=== PATIENT | female | born 1930 | race Caucasian/White ===

== ENCOUNTER 2016-06-30 20:37 | Emergency (ER) | payer MEDICARE, BC ==
--- NOTE | 2016-06-30 20:54 | ED Physician Documentation ---
General Adult - HISTORIAN Historian: patient - HPI Stated Complaint: hypertension Chief Complaint: General Adult Onset: hours Timing: still present Severity: moderate Further Comments: yes (Pt is an 86 yo female with HTN. Pt takes her BP regularly and found high readings at home with SBP>200. Pt has hx HTN and intermittent afib and has had afib with rvr in the past. Pt takes sotolol and lisinopril for HR and HTN.) - ROS CONST: no problems EYES/ENT: none CVS/RESP: none GI/: none MS/SKIN/LYMPH: none - PAST HX Past History: other (intermittent afib, hx afib w rvr, HTN, parathyroid dz, HLD , GERD.) Allergies/Adverse Reactions: Allergies Allergy/AdvReac Type Severity Reaction Status Date / Time sulfamethoxazole Allergy Intermediate rash Unverified 06/02/16 10:20 [From Bactrim] trimethoprim [From Bactrim] Allergy Intermediate rash Unverified 06/02/16 10:20 No Known Drug Allergies Allergy Unverified 06/02/16 09:47 Home Medications: Ambulatory Orders Medication Instructions Recorded Clopidogrel Bisulfate [Plavix] 75 mg PO DAILY u2 06/02/16 Lansoprazole 15 mg PO DAILY 06/02/16 Lisinopril 10 mg PO DAILY u2 06/02/16 Sotalol HCl [Sotalol] 80 mg PO BID u2 06/02/16 Ubidecarenone/Vit E Acetate [Co 1 each PO DAILY av 06/02/16 Q-10 100 Mg Softgel] - SOCIAL HX Smoking History: non-smoker Alcohol Use: rarely - FAMILY HX Family History: Yes (mother: parathyroid dz) - REVIEWED ASSESSMENTS Nursing Assessment Reviewed: Yes Vitals Reviewed: Yes Progress - Progress Progress: Pt's BP improved in ER without tx. BP 147/74 at d/c. Pt has been taking Lisinopril sometimes 5, sometimes 10 mg po qd. Pt will take 10 mg po qd consistently and f/u with pcp. Pt states she has chronically elevated calcium level due to parathyroid dz. - EKG/XRAY/CT EKG: NSR (HR=66; PVC's.) General Adult Physical Exam - PHYSICAL EXAM GENERAL APPEARANCE: mild distress (anxious) EENT: pharynx normal NECK: normal inspection, supple RESPIRATORY: no resp distress, chest non-tender, breath sounds normal CVS: reg rate & rhythm, heart sounds normal ABDOMEN: soft, no organomegaly, normal bowel sounds BACK: normal inspection, no CVA tenderness SKIN: warm/dry, normal color EXTREMITIES: non-tender, normal range of motion, no evidence of injury NEURO: oriented X3, motor nml, sensation nml Discharge Clincal Impression: HTN (hypertension) Qualifiers: Hypertension type: unspecified secondary hypertension Qualified Code(s): I15.9 - Secondary hypertension, unspecified Referrals: Fany Rodriguez MD [Primary Care Provider] - Home Medications: Ambulatory Orders Clopidogrel Bisulfate [Plavix] 75 mg PO DAILY u2 06/02/16 Lansoprazole 15 mg PO DAILY 06/02/16 Lisinopril 10 mg PO DAILY u2 06/02/16 Sotalol HCl [Sotalol] 80 mg PO BID u2 06/02/16 Ubidecarenone/Vit E Acetate [Co Q-10 100 Mg Softgel] 1 each PO DAILY av Condition: Good Disposition: 01 HOME, SELF-CARE Decision to Admit: NO Decision Time: 21:57
[2016-06-30 21:11] LABS: BASOPHILS % 0.3 (0.0-1.5); EOSINOPHILS % 2.6 % (0.0-6.8); MEAN CORPUSCULAR HEMOGLOBIN 31.5 pg (28.0-34.0); MEAN CORPUSCULAR VOLUME 96.4 fl (80.0-100.0); MONOCYTES % 8.8 % (0.0-11.0); NEUTROPHILS # 3.8 # k/uL (1.4-7.7)
[2016-06-30 21:24] LABS: eGFR (African) > 60; eGFR (Non-African) > 60
[2016-06-30 22:38] VITALS: BP 161/87
== END 2016-06-30 22:10 | disposition home or self-care (01) ==
LOC: ED 20:37
DX: I15.9 Secondary hypertension, unspecified (principal)
CPT/HCPCS: 80053; 85025; 99283; S1016

== ENCOUNTER 2016-07-12 08:18 | Emergency (ER) | payer MEDICARE, BC ==
[2016-07-12] MEDS ORDERED: ONDANSETRON HCL/PF 4 MG/ 2ML VIAL IVP ONE (08:38)
[2016-07-12] MEDS ORDERED: fentaNYL CITRATE/PF 100 MCG/ 2ML AMP IVP ONE ×2 (08:39→08:54)
--- NOTE | 2016-07-12 09:00 | ED Physician Documentation ---
Fall - HISTORIAN Historian: patient - HPI Stated Complaint: fall Chief Complaint: Fall Onset: just prior to arrival Where: home Context: tripped r: severe Associated Symptoms:: no loss of consciousness Location of Pain/Injury: hip (right) Injury to Right Extremity: hip (right) Injury to Left Extremity: none Further Comments: yes (86 year old female patient brought in by EMS after a fall at home. Patient with right hip point tenderness, no rotation or shortening noted with pillow propped under knee.) - ROS CONST: no problems NEURO: denies: dizziness, anxiety, depression EYES/ENT: none CVS/RESP: none GI/: denies: nausea, vomiting - PAST HX Past History: A-Fib (intermittent, hx afib with RVR, on plavix), other (HTN, parathyroid disease, HLD, GERD; Partial colectomy, abnormal Mammogram) Allergies/Adverse Reactions: Allergies Allergy/AdvReac Type Severity Reaction Status Date / Time sulfamethoxazole Allergy Intermediate rash Verified 07/12/16 09:09 [From Bactrim] trimethoprim [From Bactrim] Allergy Intermediate rash Verified 07/12/16 09:09 Home Medications: Ambulatory Orders Medication Instructions Recorded Clopidogrel Bisulfate [Plavix] 75 mg PO DAILY u2 06/02/16 Lansoprazole 15 mg PO DAILY 06/02/16 Lisinopril 10 mg PO DAILY u2 06/02/16 Sotalol HCl [Sotalol] 80 mg PO BID u2 06/02/16 Atorvastatin Calcium [Atorvastatin 20 mg PO HS 07/12/16 Calcium] - SOCIAL HX Smoking History: non-smoker - FAMILY HX Family History: none - VITAL SIGNS Vital Signs: Vital Signs Temp Pulse Resp BP Pulse Ox 67 21 165/75 98 07/12/16 08:25 07/12/16 08:25 07/12/16 08:25 07/12/16 08:25 - REVIEWED ASSESSMENTS Nursing Assessment Reviewed: Yes Vitals Reviewed: Yes Progress - Progress Progress: Severe pain with repositioning from stretcher to xray table. Repeated Fentanyl. Patient c/o hip spasms - will titrate IV valium. Reviewed hip and femur xrays with patient and son. Patient requested transfer to [facility]. 1000 Call to [facility], case discussed with Michell; awaiting acceptance. History: Patient takes only 1/2 tab of Plavix - states she has rectal bleeding when taking 1/2 plavix with her diclofenac [address] [place]. Patient last ate at 0600. ED Results Lab/Radiology - Radiology Radiology Impressions: Left femur -two views CLINICAL HISTORY: Fall with injury. Pain. FINDINGS: Examination of the left femur in AP and lateral views demonstrates mildly comminuted and minimally displaced fracture in the proximal femoral shaft with fracture line along the intertrochanteric line and a fracture line extending from there distally and laterally to lateral cortex. Lesser trochanter fracture line parallels the femoral shaft. Degenerative changes are evident in the hip and knee joints. IMPRESSION: Comminuted and minimally displaced fracture of the proximal femur. Degenerative changes. Electronically signed on July 12, 2016 9:55:01 AM CDT by: Amrit Hernández Right hip -two views CLINICAL HISTORY: Fall with injury. Pain. FINDINGS: Examination of the right hip in AP and cross-table lateral views demonstrates a comminuted intertrochanteric/ subtrochanteric fracture of the right femur with minimal displacement of fracture fragments. There is narrowing of the hip joint space with osteophyte formation. IMPRESSION: Comminuted but minimally displaced fracture of the right femur in the intertrochanteric/subtrochanteric region. Degenerative changes in the hip. Electronically signed on July 12, 2016 9:50:03 AM CDT by: Amrit Hernández - Orders Orders: ED Orders Category Date Time Status RT HIP 2VIEW COMPLETE [RAD] Stat Exams 07/12/16 Ordered Ondansetron HCl/Pf [Zofran 4 mg/2 ml] Med 07/12/16 08:38 Discontinued 4 mg IVP NOW ONE fentaNYL CITRATE/PF [Duragesic] Med 07/12/16 08:39 Discontinued 50 mcg IVP NOW ONE fentaNYL CITRATE/PF [Duragesic] Med 07/12/16 08:54 Discontinued 50 mcg IVP NOW ONE Fall Physical Exam - Physical Exam General Appearance: moderate distress, severe distress (with movement) Head: non-tender Eye: ORA Resp/CVS: chest non-tender, no ecchymosis, breath sounds nml, no resp. distress , heart sounds nml Abdomen: soft, no organomegaly, normal bowel sounds, no abdominal bruit, no distension Neuro: oriented x3, CN's nml as tested, sensation nml, motor nml, mood/affect nml, air dispatcher nml, reflexes nml, air dispatcher symmetrical Skin: no rash, pallor, nml palp., dry Extremities: atraumatic, pelvis stable, hips non-tender, no pedal edema, nml ROM , nml color/temp - [place] Coma Score Eyes Open: Spontaneous Speech: Oriented Motor: Obeys Commands Discharge Clincal Impression: Hip pain, right Right femoral fracture Qualifiers: Encounter type: initial encounter Femur location: intertrochanteric Fracture type: closed Fracture alignment: displaced Qualified Code(s): S72.141A - Displaced intertrochanteric fracture of right femur, initial encounter for closed fracture Referrals: Fany Rodriguez MD [Primary Care Provider] - 2 Days Home Medications: Ambulatory Orders Clopidogrel Bisulfate [Plavix] 75 mg PO DAILY u2 06/02/16 Lansoprazole 15 mg PO DAILY 06/02/16 Lisinopril 10 mg PO DAILY u2 06/02/16 Sotalol HCl [Sotalol] 80 mg PO BID u2 06/02/16 Atorvastatin Calcium [Atorvastatin Calcium] 20 mg PO HS 07/12/16 Condition: Stable Disposition: 02 XFER SHT-TRM HOSP Decision to Admit: NO Decision Time: 10:15
[2016-07-12] MEDS ORDERED: DIAZEPAM 5 MG/ML DISP.SYRIN IVP ONE (09:20)
[2016-07-12 09:30] LABS: BASOPHILS % 0.3 (0.0-1.5); EOSINOPHILS % 1.5 % (0.0-6.8); MEAN CORPUSCULAR HEMOGLOBIN 32.1 pg (28.0-34.0); MEAN CORPUSCULAR VOLUME 97.3 fl (80.0-100.0); MONOCYTES % 6.2 % (0.0-11.0); NEUTROPHILS # 5.9 # k/uL (1.4-7.7)
[2016-07-12 09:39] LABS: eGFR (African) > 60; eGFR (Non-African) > 60
[2016-07-12 10:13] LABS: APPEARANCE,URINE Clear (CLEAR); COLOR,URINE Yellow (YELLOW); OCCULT BLOOD,URINE Negative (NEGATIVE); UROBILINOGEN URINE 0.2 Eu (0.2-1.0)
[2016-07-12 10:51] VITALS: BP 135/59
--- NOTE | 2016-07-12 14:18 | Diagnostic Imaging Report ---
[facility] [address] [facility].[address] [address] Report Submission Date: July 12, 2016 9:50:03 AM CDT Patient Study Name: PRASHANTH QUEEN Date: July 12, 2016 8:52:39 AM CDT Modality Type: CR Gender: F Description: PELVIS : 28 Institution: [facility] Physician GABY SANTAMARIA (BODY ROLLING MACHINE TENDER) - ER Right hip -two views CLINICAL HISTORY: Fall with injury. Pain. FINDINGS: Examination of the right hip in AP and cross-table lateral views demonstrates a comminuted intertrochanteric/ subtrochanteric fracture of the right femur with minimal displacement of fracture fragments. There is narrowing of the hip joint space with osteophyte formation. IMPRESSION: Comminuted but minimally displaced fracture of the right femur in the intertrochanteric/subtrochanteric region. Degenerative changes in the hip. Electronically signed on July 12, 2016 9:50:03 AM CDT by: Amrit SHEIKH
--- NOTE | 2016-07-12 14:21 | Diagnostic Imaging Report ---
[facility] [address] [facility].[address] [address] Report Submission Date: July 12, 2016 9:55:01 AM CDT Patient Study Name: PRASHANTH QUEEN Date: July 12, 2016 9:20:16 AM CDT Modality Type: CR Gender: F Description: LOWER EXTREMITY : 28 Institution: [facility] Physician GABY SANTAMARIA (SLEEVER) - ER Left femur -two views CLINICAL HISTORY: Fall with injury. Pain. FINDINGS: Examination of the left femur in AP and lateral views demonstrates mildly comminuted and minimally displaced fracture in the proximal femoral shaft with fracture line along the intertrochanteric line and a fracture line extending from there distally and laterally to lateral cortex. Lesser trochanter fracture line parallels the femoral shaft. Degenerative changes are evident in the hip and knee joints. IMPRESSION: Comminuted and minimally displaced fracture of the proximal femur. Degenerative changes. Electronically signed on July 12, 2016 9:55:01 AM CDT by: Amrit SHEIKH
== END 2016-07-12 10:20 | disposition short-term general hospital (02) ==
LOC: ED 08:18
DX: S72.141A Displaced intertrochanteric fracture of right femur, initial encounter for closed fracture (principal); W19.XXXA Unspecified fall, initial encounter; Y93.9 Activity, unspecified; Y99.9 Unspecified external cause status
CPT/HCPCS: 51702; 73502; 73552; 80053; 81002; 85025; 85610; 85730; J2405; J3010; J3360; 96374; 99284; S1016

== ENCOUNTER 2016-07-16 12:38 | Inpatient (IN) | payer MEDICARE, BC ==
[2016-07-16] MEDS: HYDROcodone /APAP 5/325 1 EACH TABLET PO PRN ×3 (12:57→23:50)
[2016-07-16 14:42] VITALS: BMI 61.4
[2016-07-16] MEDS ORDERED: BISACODYL 10 MG SUPP.RECT RC PRN (14:43)
[2016-07-16] MEDS ORDERED: traMADol HCL 50 MG TABLET PO PRN (14:43)
[2016-07-16] MEDS ORDERED: diphenhydrAMINE HCL 25 MG TABLET PO PRN (14:43)
[2016-07-16] MEDS ORDERED: ONDANSETRON HCL 4 MG TAB.RAPDIS PO PRN (14:43)
[2016-07-16] MEDS ORDERED: ACETAMINOPHEN 500 MG TABLET PO SCH (15:00)
[2016-07-16] MEDS: ENOXAPARIN SODIUM 30 MG/0.3 ML DISP.SYRIN SQ SCH (15:10)
[2016-07-16 15:26] LABS: eGFR (African) > 60; eGFR (Non-African) > 60
[2016-07-16] MEDS: BISACODYL 5 MG TABLET.DR PO PRN (20:10)
[2016-07-16] MEDS: DOCUSATE SODIUM 100 MG CAPSULE PO SCH (20:11)
[2016-07-16] MEDS: SOTALOL HCL 80 MG TABLET PO SCH (20:11)
--- NOTE | 2016-07-16 21:33 | History and Physical Report ---
History of Present Illnes - History of Present Illness Reason for Visit: Weakness History of Present Illness: Patient admitted to SNF for PT/OT. She suffered R hip fx while changing sheets - got her foot caught in the sheets and fell. Dr. Brooks did an intramedullary fixation of her R intertrochanteric femur fracture. Post operatively she had RVR with her Afib. Diltiazem was added to her medication regimen. She did have some post op anemia - Hgb stable around 8.6. She has had poor appetite and noted to have low potassium and phosphorus. Pain seems better but no BM since she went to the hospital. 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) Gastrointestinal: Diverticulosis, GERD, Other (Hiatal hernia) Musculoskeletal: Osteoarthritis, Other (DJD) Endocrine: Hyperparathyroidism - Past Surgical History Past Surgical History: Appendectomy, Breast Biopsy (R breast lumpectomy), Hysterectomy (Endometriosis), Other (Partial colectomy at 77 due to severe diverticulitis; R ORIF hip), Other (PCI with stent - 2 in and 1 in 2012; thyroid nodule) - Past Social History Smoke: No Occupation: Retired retail bakery manager Alcohol: None Drugs: None Lives: With Family ( 2014.) - Health Maintenance Health Maintenance: Influenza Vaccine, Pneumococcal Vaccine Influenza Vaccine: Current for this Influenza Season Pneumonia Vaccine: Yes Resuscitation Status: DNR Review of Systems - Review of Systems Constitutional: Weakness. negative: Fever Eyes: negative: pain ENT: negative: Ear Pain Respiratory: negative: Cough Cardiovascular: negative: Chest Pain Gastrointestinal: Constipation Genitourinary: negative: Dysuria Musculoskeletal: Leg Pain Skin: negative: Rash Neurological: Weakness - Medications/Allergies Allergies/Adverse Reactions: Allergies Allergy/AdvReac Type Severity Reaction Status Date / Time sulfamethoxazole Allergy Intermediate rash Verified 07/12/16 09:09 [From Bactrim] trimethoprim [From Bactrim] Allergy Intermediate rash Verified 07/12/16 09:09 Home Medications: Home Medications Acetaminophen [Extra Strength Non-Aspirin] 1 tab PO PRN 07/16/16 Baclofen [Liorasal] 5 mg PO Q12 PRN 07/16/16 Bisacodyl [Bisacodyl] 10 mg RC DAILY PRN 07/16/16 Cholecalciferol [Vitamin D-3] 2,000 unit PO DAILY 07/16/16 Diazepam [Valium] 1 tab PO PRN PRN 07/16/16 Diltiazem HCl [Cardizem CD] 1 cap PO DAILY 07/16/16 Docusate Sodium [Colace] 100 mg PO BID 07/16/16 Enoxaparin Sodium [Lovenox] 40 mg SQ DAILY 07/16/16 HYDROcodone /APAP 5/325 [[place] 5/325] 1 - 2 tab PO Q4 PRN 07/16/16 Magnesium Hydroxide [Milk of Magnesia] 30 ml PO BID PRN 07/16/16 Ondansetron HCl Rapdis [Zofran ODT] 1 tab PO Q8 PRN 07/16/16 Tramadol HCl [Ultram] 1 tab PO Q6 PRN 07/16/16 diphenhydrAMINE HCL [Benadryl] 1 tab PO PRN PRN 07/16/16 Current Inpatient Medications: Current Inpatient Medications Acetaminophen (Tylenol Extra Strength) mg PO PRN KELECHI Al Hydroxide/Mg Hydroxide (Milk Of Magnesia) 2,400 mg PO BID PRN PRN Reason: Constipation Bisacodyl (Dulcolax) 10 mg RC DAILY PRN PRN Reason: Constipation Bisacodyl (Dulcolax) 10 mg PO DAILY PRN PRN Reason: Constipation Cholecalciferol (Vitamin D-3) 2,000 unit PO DAILY KELECHI Clopidogrel Bisulfate (Plavix) mg PO DAILY KELECHI Diltiazem HCl (Cardizem Cd) mg PO DAILY KELECHI Diphenhydramine HCl (Benadryl) mg PO PRN PRN PRN Reason: DIRECTED BY DR'S ORDER Docusate Sodium (Colace) 100 mg PO BID KELECHI Enoxaparin Sodium (Lovenox) 30 mg SQ QD KELECHI Stop: 07/30/16 14:59 Ondansetron HCl (Zofran Odt) mg PO Q8 PRN PRN Reason: Nausea / Vomiting Pantoprazole Sodium (Protonix) 40 mg PO 0700 KELECHI Sotalol HCl (Betapace) 40 mg PO BID KELECHI Tramadol HCl (Ultram) mg PO Q6 PRN PRN Reason: PAIN Exam - Exam Vital Signs: Vital Signs (72 hours) 07/16/16 12:42 Temperature 98.4 F Pulse Rate [ 95 H Right Pulse ox] Respiratory 18 Rate Blood Pressure 106/60 [Right Arm] O2 Sat by Pulse 95 Oximetry General: Alert, Oriented to Person, Oriented to Place, Oriented to Time, Cooperative, No acute distress HEENT: Atraumatic, PERRLA, EOMI, Mouth Mucous membr. moist/[place]ck: Normal Range of Motion Lungs: Clear to auscultation, Normal air movement, Speaks full Sentences Cardiovascular: Regular rate Abdomen: Normal bowel sounds, Soft, No tenderness Integumentary: Normal Extremities: Other (Incisions in R hip C/D/I. No evidence of infection.) Neurological: Generalized Weakness Psych/Mental Status: Mental status NL, Mood NL, Appropriate Affect Assessment/Plan - Assessment/Plan (1) Unsteady gait Status: Acute Current Visit: Yes Plan: Admit for PT/OT. (2) Afib Status: Acute Current Visit: Yes Qualifiers: Atrial fibrillation type: chronic Qualified Code(s): I48.2 - Chronic atrial fibrillation Plan: Rate controlled now with new diltiazem on board. Patient has appt to schedule with cardiology as outpatient. (3) Anemia Status: Acute Current Visit: Yes Qualifiers: Anemia type: unspecified type Qualified Code(s): D64.9 - Anemia, unspecified Plan: Suspect due to surgery. Watch closely as she is on lovenox and plavix. (4) Hypophosphatemia Status: Acute Current Visit: Yes Plan: Suspect dietary. ON replacement. Watch closely. Stop when eating better and labs normalized. (5) Hypokalemia Status: Acute Current Visit: Yes Plan: Replace orally. Watch. (6) Right femoral fracture Status: Acute Current Visit: No Qualifiers: Encounter type: initial encounter Femur location: intertrochanteric Fracture type: closed Fracture alignment: displaced Qualified Code(s): S72.141A - Displaced intertrochanteric fracture of right femur, initial encounter for closed fracture Plan: Lovenox for DVT prevention. Sutures out in 14 days. F/U Dr. Brooks in a month. MARICARMEN baker. VTE Assessment - RISK FACTOR SCORE VTE RISK FACTOR SCORES: AGE OVER 60 YEARS, HIP, PELVIS, OR LEG FX - RISK VTE MODERATE RISK: SCORE OF 2 (RISK PROXIMAL DVT 2-4%) PROPHYAXIS NEEDED
[2016-07-16] MEDS: PHOSPHA PO SCH (21:45)
[2016-07-17] MEDS: PANTOPRAZOLE SODIUM 40 MG TABLET PO SCH (06:07)
[2016-07-17] MEDS: HYDROcodone /APAP 5/325 1 EACH TABLET PO PRN ×4 (06:08→23:34)
[2016-07-17] MEDS: DOCUSATE SODIUM 100 MG CAPSULE PO SCH ×2 (08:03→20:29)
[2016-07-17] MEDS: SOTALOL HCL 80 MG TABLET PO SCH ×2 (08:03→20:29)
[2016-07-17] MEDS: POTASSIUM CHLORIDE 20 MEQ TABLET.ER PO SCH (08:04)
[2016-07-17] MEDS: CHOLECALCIFEROL 1,000 UNIT TABLET PO SCH (08:04)
[2016-07-17] MEDS: PHOSPHA PO SCH ×4 (08:04→21:07)
[2016-07-17] MEDS ORDERED: CLOPIDOGREL BISULFATE 75 MG TABLET PO SCH (09:00)
[2016-07-17] MEDS ORDERED: BACLOFEN 10 MG TABLET PO SCH ×2 (09:00→13:00)
[2016-07-17] MEDS ORDERED: DILTIAZEM HCL 120 MG CAP.ER.24H PO SCH ×2 (09:00→10:57)
[2016-07-17] MEDS ORDERED: ACETAMINOPHEN 500 MG TABLET PO SCH (10:57)
[2016-07-17] MEDS ORDERED: diphenhydrAMINE HCL 25 MG TABLET PO SCH (12:00)
[2016-07-17] MEDS: DIAZEPAM 5 MG TABLET PO PRN (12:40)
[2016-07-17] MEDS: DILTIAZEM HCL 120 MG CAP.ER.24H PO SCH (12:42)
[2016-07-17] MEDS: ENOXAPARIN SODIUM 30 MG/0.3 ML DISP.SYRIN SQ SCH (15:55)
[2016-07-17] MEDS: MAGNESIUM HYDROXIDE 400 MG/5 ML 30ML UDC PO PRN (20:29)
[2016-07-17] MEDS: BACLOFEN 10 MG TABLET PO SCH (20:29)
[2016-07-18] MEDS: BISACODYL 5 MG TABLET.DR PO PRN (04:26)
[2016-07-18] MEDS: PANTOPRAZOLE SODIUM 40 MG TABLET PO SCH (05:57)
[2016-07-18] MEDS: SOTALOL HCL 80 MG TABLET PO SCH ×2 (09:42→21:15)
[2016-07-18] MEDS: DOCUSATE SODIUM 100 MG CAPSULE PO SCH ×2 (09:43→21:14)
[2016-07-18] MEDS: DILTIAZEM HCL 120 MG CAP.ER.24H PO SCH (09:43)
[2016-07-18] MEDS: BACLOFEN 10 MG TABLET PO SCH ×2 (09:44→21:15)
[2016-07-18] MEDS: POTASSIUM CHLORIDE 20 MEQ TABLET.ER PO SCH (09:44)
[2016-07-18] MEDS: CHOLECALCIFEROL 1,000 UNIT TABLET PO SCH (09:45)
[2016-07-18] MEDS: CLOPIDOGREL BISULFATE 75 MG TABLET PO SCH (09:45)
[2016-07-18] MEDS: PHOSPHA PO SCH ×4 (09:45→21:15)
[2016-07-18] MEDS: HYDROcodone /APAP 5/325 1 EACH TABLET PO PRN ×3 (09:46→17:54)
[2016-07-18] MEDS: traMADol HCL 50 MG TABLET PO PRN ×2 (12:03→21:15)
[2016-07-18] MEDS: ONDANSETRON HCL 4 MG TAB.RAPDIS PO PRN (12:03)
[2016-07-18] MEDS: ENOXAPARIN SODIUM 30 MG/0.3 ML DISP.SYRIN SQ SCH (14:28)
[2016-07-18] MEDS: DIAZEPAM 5 MG TABLET PO PRN (21:19)
[2016-07-19] MEDS: HYDROcodone /APAP 5/325 1 EACH TABLET PO PRN ×2 (06:15→11:37)
[2016-07-19] MEDS: PANTOPRAZOLE SODIUM 40 MG TABLET PO SCH (06:15)
[2016-07-19] MEDS: ONDANSETRON HCL 4 MG TAB.RAPDIS PO PRN ×2 (09:42→20:28)
[2016-07-19] MEDS: DOCUSATE SODIUM 100 MG CAPSULE PO SCH ×2 (10:15→20:25)
[2016-07-19] MEDS: DILTIAZEM HCL 120 MG CAP.ER.24H PO SCH (10:15)
[2016-07-19] MEDS: SOTALOL HCL 80 MG TABLET PO SCH ×2 (10:15→20:25)
[2016-07-19] MEDS: POTASSIUM CHLORIDE 20 MEQ TABLET.ER PO SCH (10:15)
[2016-07-19] MEDS: CLOPIDOGREL BISULFATE 75 MG TABLET PO SCH (10:16)
[2016-07-19] MEDS: CHOLECALCIFEROL 1,000 UNIT TABLET PO SCH (10:16)
[2016-07-19] MEDS: PHOSPHA PO SCH ×4 (10:17→20:26)
[2016-07-19] MEDS: BACLOFEN 10 MG TABLET PO SCH ×2 (10:17→20:26)
[2016-07-19] MEDS: DIAZEPAM 5 MG TABLET PO PRN (11:37)
[2016-07-19] MEDS: ENOXAPARIN SODIUM 30 MG/0.3 ML DISP.SYRIN SQ SCH (14:51)
[2016-07-19] MEDS: ACETAMINOPHEN 500 MG TABLET PO PRN (17:49)
[2016-07-19] MEDS: traMADol HCL 50 MG TABLET PO PRN (20:28)
[2016-07-20] MEDS: HYDROcodone /APAP 5/325 1 EACH TABLET PO PRN (01:32)
[2016-07-20] MEDS: ONDANSETRON HCL 4 MG TAB.RAPDIS PO PRN ×2 (01:33→08:15)
[2016-07-20] MEDS: PANTOPRAZOLE SODIUM 40 MG TABLET PO SCH (06:09)
[2016-07-20 07:07] LABS: eGFR (African) > 60; eGFR (Non-African) > 60
[2016-07-20] MEDS: SOTALOL HCL 80 MG TABLET PO SCH ×2 (08:21→19:49)
[2016-07-20] MEDS: PHOSPHA PO SCH ×4 (08:21→19:49)
[2016-07-20] MEDS: DOCUSATE SODIUM 100 MG CAPSULE PO SCH ×2 (08:21→19:54)
[2016-07-20] MEDS: POTASSIUM CHLORIDE 20 MEQ TABLET.ER PO SCH (08:22)
[2016-07-20] MEDS: DILTIAZEM HCL 120 MG CAP.ER.24H PO SCH (08:22)
[2016-07-20] MEDS: CLOPIDOGREL BISULFATE 75 MG TABLET PO SCH (08:22)
[2016-07-20] MEDS: CHOLECALCIFEROL 1,000 UNIT TABLET PO SCH (08:22)
[2016-07-20] MEDS: ACETAMINOPHEN 325 MG TABLET PO SCH ×3 (08:23→17:04)
[2016-07-20] MEDS: BACLOFEN 10 MG TABLET PO SCH ×2 (08:23→19:49)
[2016-07-20 08:28] LABS: BASOPHILS % 0.2 (0.0-1.5); EOSINOPHILS % 2.6 % (0.0-6.8); MEAN CORPUSCULAR HEMOGLOBIN 32.2 pg (28.0-34.0); MEAN CORPUSCULAR VOLUME 96.9 fl (80.0-100.0); MONOCYTES % 5.3 % (0.0-11.0); NEUTROPHILS # 6.8 # k/uL (1.4-7.7)
[2016-07-20] MEDS: oxyCODONE HCL 5 MG TABLET PO PRN ×2 (10:09→19:53)
--- NOTE | 2016-07-20 12:51 | Diagnostic Imaging Report ---
[facility] [address] [facility] [address] [address] Report Submission Date: July 20, 2016 10:10:16 AM CDT Patient Study Name: PRASHANTH QUEEN Date: July 20, 2016 9:23:12 AM CDT Modality Type: CR Gender: F Description: ABDOMEN : 28 Institution: [facility] Physician SOUTH WING/MED SURG EXAMINATION: Abdomen AP view. HISTORY: Nausea FINDINGS: The bowel gas pattern is normal without evidence of obstruction. There is mild amount retained stool present throughout the colon. The lung bases are clear. There is evidence of previous internal fixation of the right proximal femur present. IMPRESSION: 1. No evidence of bowel obstruction. 2. Mild amount retained stool present throughout the colon. Electronically signed on July 20, 2016 10:10:16 AM CDT by: Krunal SHEIKH
--- NOTE | 2016-07-20 13:10 | Inpatient Progress Note ---
Subjective - Required Recertification Statement I anticipate X number of days because-include discharge plan: 10 - Review of Systems Subjective: Patient complains of nausea yesterday and today. Had an episode of RVR with her afib yesterday. Nursing reports patient refusing to get up. Patient says she is in pain. Has received tramadol and norco. Unsure if that is making her nauseated. Had a BM 2 days ago after "digging myself out." Not eating much. Denies urinary symptoms but nursing reports urine is dark with odor (had catheter during surgery). Denies abdominal pain or distention. Objective - Exam Vitals and I&O: Vital Signs Temp 98.4 F 07/19/16 20:27 Pulse 84 07/19/16 20:27 Resp 18 07/19/16 20:27 BP 160/75 07/19/16 20:27 Pulse Ox 94 07/19/16 20:27 Intake & Output 07/19/16 07/19/16 07/20/16 11:59 23:59 11:59 Intake Total 20 360 0 Output Total 60 Balance 20 300 0 Weight 71.214 kg 71.214 kg Intake: Oral 20 360 0 Output: Emesis 60 Other: Voiding Method Toilet Toilet # Voids 1 2 1 # Bowel Movements 0 General: Alert, Oriented to Person, Oriented to Place, Oriented to Time, Cooperative Lungs: Clear to auscultation, Normal air movement, Speaks full Sentences Cardiovascular: Regular rate, Irregularly Irregular Abdomen: Normal bowel sounds, Soft, No tenderness - Results Results: Laboratory Results Sodium 138 mmol/L (136-145) 07/20/16 06:30 Potassium 3.5 mmol/L (3.5-5.0) 07/20/16 06:30 Chloride 94 mmol/L (98-110) L 07/20/16 06:30 Carbon Dioxide 30 mmol/L (20-32) 07/20/16 06:30 BUN 11 mg/dL (10-26) 07/20/16 06:30 Creatinine 0.7 mg/dL (0.4-1.5) 07/20/16 06:30 Estimated Creat Clear 74 07/20/16 06:30 Est GFR ( Amer) > 60 (60-) 07/20/16 06:30 Est GFR (Non-Af Amer) > 60 (60-) 07/20/16 06:30 Glucose 105 mg/dL (70-99) H 07/20/16 06:30 Calcium 11.1 mg/dL (8.5-10.5) H 07/20/16 06:30 Assessment/Plan - Assessment/Plan (1) Unsteady gait Status: Acute Current Visit: Yes (2) Afib Status: Acute Current Visit: Yes Qualifiers: Atrial fibrillation type: chronic Qualified Code(s): I48.2 - Chronic atrial fibrillation (3) Anemia Status: Acute Current Visit: Yes Qualifiers: Anemia type: unspecified type Qualified Code(s): D64.9 - Anemia, unspecified Plan: Hgb improving. (4) Hypophosphatemia Status: Acute Current Visit: Yes Assessment: PO4 pending. On replacement. ? causing nausea. (5) Hypokalemia Status: Acute Current Visit: Yes (6) Right femoral fracture Status: Acute Current Visit: No Qualifiers: Encounter type: initial encounter Femur location: intertrochanteric Fracture type: closed Fracture alignment: displaced Qualified Code(s): S72.141A - Displaced intertrochanteric fracture of right femur, initial encounter for closed fracture Plan: suspect pain meds are causing nausea. Will plan to do tylenol scheduled and oxycodone prn. Watch bowels - may need to add to colace. Encourage patient to get up and active. Zofran prn. Check UA and Cx.
[2016-07-20] MEDS: BISACODYL 5 MG TABLET.DR PO PRN (13:41)
[2016-07-20] MEDS: ENOXAPARIN SODIUM 30 MG/0.3 ML DISP.SYRIN SQ SCH (14:27)
[2016-07-20] MEDS: DIAZEPAM 5 MG TABLET PO PRN (23:21)
[2016-07-20] MEDS: ACETAMINOPHEN 500 MG TABLET PO PRN (23:22)
[2016-07-20] MEDS: diphenhydrAMINE HCL 25 MG TABLET PO PRN (23:22)
[2016-07-21] MEDS: oxyCODONE HCL 5 MG TABLET PO PRN ×2 (05:00→19:31)
[2016-07-21] MEDS: PANTOPRAZOLE SODIUM 40 MG TABLET PO SCH (05:00)
[2016-07-21] MEDS: ACETAMINOPHEN 500 MG TABLET PO PRN ×2 (05:00→19:31)
[2016-07-21] MEDS: SOTALOL HCL 80 MG TABLET PO SCH ×2 (08:40→19:30)
[2016-07-21] MEDS: BACLOFEN 10 MG TABLET PO SCH ×2 (08:44→19:30)
[2016-07-21] MEDS: POTASSIUM CHLORIDE 20 MEQ TABLET.ER PO SCH (08:44)
[2016-07-21] MEDS: DOCUSATE SODIUM 100 MG CAPSULE PO SCH ×2 (08:44→19:31)
[2016-07-21] MEDS: DILTIAZEM HCL 120 MG CAP.ER.24H PO SCH (08:44)
[2016-07-21] MEDS: CLOPIDOGREL BISULFATE 75 MG TABLET PO SCH (08:46)
[2016-07-21] MEDS: PHOSPHA PO SCH ×4 (08:48→19:33)
[2016-07-21] MEDS: ACETAMINOPHEN 325 MG TABLET PO SCH ×3 (08:48→18:05)
[2016-07-21] MEDS: CHOLECALCIFEROL 1,000 UNIT TABLET PO SCH (08:49)
[2016-07-21] MEDS: SERTRALINE HCL 50 MG TABLET PO SCH (08:53)
[2016-07-21] MEDS: ENOXAPARIN SODIUM 30 MG/0.3 ML DISP.SYRIN SQ SCH (15:50)
[2016-07-21] MEDS: ONDANSETRON HCL 4 MG TAB.RAPDIS PO PRN (15:53)
[2016-07-21] MEDS: BISACODYL 5 MG TABLET.DR PO PRN (18:50)
[2016-07-21] MEDS: DIAZEPAM 5 MG TABLET PO PRN (22:18)
[2016-07-22] MEDS: DIAZEPAM 5 MG TABLET PO PRN ×2 (00:01→14:01)
[2016-07-22] MEDS: oxyCODONE HCL 5 MG TABLET PO PRN ×3 (03:31→20:18)
[2016-07-22] MEDS: ACETAMINOPHEN 500 MG TABLET PO PRN (03:31)
[2016-07-22] MEDS: PANTOPRAZOLE SODIUM 40 MG TABLET PO SCH (06:01)
[2016-07-22] MEDS: SOTALOL HCL 80 MG TABLET PO SCH ×2 (08:20→20:18)
[2016-07-22] MEDS: DOCUSATE SODIUM 100 MG CAPSULE PO SCH ×2 (08:22→20:18)
[2016-07-22] MEDS: DILTIAZEM HCL 120 MG CAP.ER.24H PO SCH (08:22)
[2016-07-22] MEDS: POTASSIUM CHLORIDE 20 MEQ TABLET.ER PO SCH ×2 (08:22→08:32)
[2016-07-22] MEDS: CLOPIDOGREL BISULFATE 75 MG TABLET PO SCH (08:23)
[2016-07-22] MEDS: ACETAMINOPHEN 325 MG TABLET PO SCH ×3 (08:24→17:12)
[2016-07-22] MEDS: CHOLECALCIFEROL 1,000 UNIT TABLET PO SCH (08:24)
[2016-07-22] MEDS: SERTRALINE HCL 50 MG TABLET PO SCH (08:24)
[2016-07-22] MEDS: ONDANSETRON HCL 4 MG TAB.RAPDIS PO PRN ×4 (08:26→17:12)
[2016-07-22] MEDS ORDERED: MAGNESIUM CITRATE 296 ML BOTTLE PO ONE (13:40)
--- NOTE | 2016-07-22 13:59 | Diagnostic Imaging Report ---
[facility]G [facility] [address] [facility] [address] [place] [address]. [address] Report Submission Date: July 22, 2016 12:07:20 PM CDT Patient Study Name: PRASHANTH QUEEN Date: July 22, 2016 11:38:54 AM CDT Modality Type: CT\SR Gender: F Description: CT BRAIN W/O CONTRAST : 28 Institution: [facility] Physician: S[facility]/MED SURG Head CT without contrast Clinical history: Weakness. Technique: CT examination of the brain is performed in contiguous axial slices without the use of contrast. Sagittal and coronal reconstructions are performed by the technologist. Findings: The fourth ventricle lies in a normal midline position. The ventricles and sulci are prominent secondary to atrophy. Chronic ischemic changes are present in the periventricular regions. There is no hypodense or hyperdense mass or intracranial hemorrhage. The visualized paranasal sinuses are clear. There is patchy opacification of mastoid air cells on the right. Impression: 1. Atrophy and chronic small vessel ischemic changes. 2. Patchy opacification of the mastoid air cells on the right. Electronically signed on July 22, 2016 12:07:20 PM CDT by: Amrit SHEIKH
[2016-07-22] MEDS: ENOXAPARIN SODIUM 30 MG/0.3 ML DISP.SYRIN SQ SCH (14:10)
[2016-07-23] MEDS: oxyCODONE HCL 5 MG TABLET PO PRN ×3 (01:31→20:55)
[2016-07-23] MEDS: ONDANSETRON HCL 4 MG TAB.RAPDIS PO PRN ×3 (01:31→20:56)
[2016-07-23] MEDS: PANTOPRAZOLE SODIUM 40 MG TABLET PO SCH (05:20)
[2016-07-23] MEDS: DIAZEPAM 5 MG TABLET PO PRN ×2 (06:08→20:57)
[2016-07-23] MEDS: SOTALOL HCL 80 MG TABLET PO SCH ×2 (08:08→20:56)
[2016-07-23] MEDS: DILTIAZEM HCL 120 MG CAP.ER.24H PO SCH (08:10)
[2016-07-23] MEDS: CLOPIDOGREL BISULFATE 75 MG TABLET PO SCH (08:11)
[2016-07-23] MEDS: DOCUSATE SODIUM 100 MG CAPSULE PO SCH ×2 (08:11→20:57)
[2016-07-23] MEDS: POTASSIUM CHLORIDE 20 MEQ TABLET.ER PO SCH (08:11)
[2016-07-23] MEDS: ACETAMINOPHEN 325 MG TABLET PO SCH ×3 (08:12→17:39)
[2016-07-23] MEDS: CHOLECALCIFEROL 1,000 UNIT TABLET PO SCH (08:12)
[2016-07-23] MEDS: SERTRALINE HCL 50 MG TABLET PO SCH (08:12)
[2016-07-23] MEDS: ENOXAPARIN SODIUM 30 MG/0.3 ML DISP.SYRIN SQ SCH (14:53)
[2016-07-23] MEDS: ACETAMINOPHEN 500 MG TABLET PO PRN (20:56)
[2016-07-24] MEDS: diphenhydrAMINE HCL 25 MG TABLET PO PRN (02:22)
[2016-07-24] MEDS: oxyCODONE HCL 5 MG TABLET PO PRN ×2 (02:22→20:18)
[2016-07-24] MEDS: PANTOPRAZOLE SODIUM 40 MG TABLET PO SCH (05:31)
[2016-07-24] MEDS: DILTIAZEM HCL 120 MG CAP.ER.24H PO SCH (08:21)
[2016-07-24] MEDS: POTASSIUM CHLORIDE 20 MEQ TABLET.ER PO SCH (08:21)
[2016-07-24] MEDS: DOCUSATE SODIUM 100 MG CAPSULE PO SCH ×2 (08:21→20:18)
[2016-07-24] MEDS: CLOPIDOGREL BISULFATE 75 MG TABLET PO SCH (08:23)
[2016-07-24] MEDS: ACETAMINOPHEN 325 MG TABLET PO SCH ×3 (08:24→18:09)
[2016-07-24] MEDS: CHOLECALCIFEROL 1,000 UNIT TABLET PO SCH (08:24)
[2016-07-24] MEDS: SERTRALINE HCL 50 MG TABLET PO SCH (08:24)
[2016-07-24] MEDS: SOTALOL HCL 80 MG TABLET PO SCH ×2 (08:27→20:18)
[2016-07-24] MEDS: ONDANSETRON HCL 4 MG TAB.RAPDIS PO PRN ×2 (12:54→20:22)
[2016-07-24] MEDS: ENOXAPARIN SODIUM 30 MG/0.3 ML DISP.SYRIN SQ SCH (15:33)
[2016-07-24] MEDS: DIAZEPAM 5 MG TABLET PO PRN (20:18)
[2016-07-25] MEDS: diphenhydrAMINE HCL 25 MG TABLET PO PRN ×2 (00:18→20:35)
[2016-07-25] MEDS: ACETAMINOPHEN 500 MG TABLET PO PRN ×2 (00:18→20:35)
[2016-07-25] MEDS: PANTOPRAZOLE SODIUM 40 MG TABLET PO SCH (05:50)
[2016-07-25] MEDS: POTASSIUM CHLORIDE 20 MEQ TABLET.ER PO SCH (08:47)
[2016-07-25] MEDS: DOCUSATE SODIUM 100 MG CAPSULE PO SCH ×2 (08:47→20:35)
[2016-07-25] MEDS: SOTALOL HCL 80 MG TABLET PO SCH ×2 (08:47→20:34)
[2016-07-25] MEDS: ACETAMINOPHEN 325 MG TABLET PO SCH ×3 (08:48→18:29)
[2016-07-25] MEDS: SERTRALINE HCL 50 MG TABLET PO SCH (08:48)
[2016-07-25] MEDS: CLOPIDOGREL BISULFATE 75 MG TABLET PO SCH (08:48)
[2016-07-25] MEDS: DILTIAZEM HCL 120 MG CAP.ER.24H PO SCH (08:48)
[2016-07-25] MEDS: CHOLECALCIFEROL 1,000 UNIT TABLET PO SCH (08:48)
[2016-07-25] MEDS: POLYETHYLENE GLYCOL 3350 17 GM POWD.PACK PO SCH ×2 (08:49→09:45)
--- NOTE | 2016-07-25 08:50 | Diagnostic Imaging Report ---
[facility] [address] [facility].[address] [address] Report Submission Date: July 25, 2016 8:29:04 AM CDT Patient Study Name: PRASHANTH QUEEN Date: July 25, 2016 8:05:53 AM CDT Modality Type: CR Gender: F Description: ABDOMEN : 28 Institution: [facility] Physician: DIESI PIERRE/MED SURG Abdomen -one view CLINICAL HISTORY: Constipation for 2 weeks. FINDINGS: Examination of the abdomen in supine view with comparison to examination of demonstrates stool throughout the colon. There is no evidence of obstruction. Degenerative changes are present in the thoracic vertebrae and hips with postoperative changes again seen in the right hip. Vascular calcification is evident. Lung bases are clear. There are old compression fractures in the thoracolumbar spine. IMPRESSION: Increased stool throughout colon. Lumbar spondylosis with old compression fractures in the thoracolumbar spine. Postoperative changes right hip. Electronically signed on July 25, 2016 8:29:04 AM CDT by: Armit SHEIKH
[2016-07-25] MEDS: BISACODYL 5 MG TABLET.DR PO PRN (09:44)
[2016-07-25] MEDS: MAGNESIUM HYDROXIDE 400 MG/5 ML 30ML UDC PO PRN (09:44)
[2016-07-25] MEDS ORDERED: POLYETHYLENE GLYCOL 3350 17 GM POWD.PACK PO SCH (11:00)
[2016-07-25] MEDS: ENOXAPARIN SODIUM 30 MG/0.3 ML DISP.SYRIN SQ SCH (15:11)
[2016-07-25] MEDS: DIAZEPAM 5 MG TABLET PO PRN (20:35)
[2016-07-26] MEDS: ACETAMINOPHEN 500 MG TABLET PO PRN ×2 (04:50→22:44)
[2016-07-26] MEDS: PANTOPRAZOLE SODIUM 40 MG TABLET PO SCH (05:50)
[2016-07-26] MEDS: POLYETHYLENE GLYCOL 3350 17 GM POWD.PACK PO SCH (07:47)
[2016-07-26] MEDS: SOTALOL HCL 80 MG TABLET PO SCH ×2 (08:13→20:17)
[2016-07-26] MEDS: CHOLECALCIFEROL 1,000 UNIT TABLET PO SCH (08:13)
[2016-07-26] MEDS: DOCUSATE SODIUM 100 MG CAPSULE PO SCH ×2 (08:13→20:17)
[2016-07-26] MEDS: CLOPIDOGREL BISULFATE 75 MG TABLET PO SCH (08:14)
[2016-07-26] MEDS: ACETAMINOPHEN 325 MG TABLET PO SCH ×3 (08:14→17:58)
[2016-07-26] MEDS: DILTIAZEM HCL 120 MG CAP.ER.24H PO SCH (08:15)
[2016-07-26] MEDS: POTASSIUM CHLORIDE 20 MEQ TABLET.ER PO SCH (08:15)
[2016-07-26] MEDS: SERTRALINE HCL 50 MG TABLET PO SCH (08:15)
[2016-07-26] MEDS: ENOXAPARIN SODIUM 30 MG/0.3 ML DISP.SYRIN SQ SCH (14:38)
[2016-07-26] MEDS: DIAZEPAM 5 MG TABLET PO PRN (20:43)
[2016-07-26] MEDS: oxyCODONE HCL 5 MG TABLET PO PRN (22:05)
[2016-07-26] MEDS ORDERED: BACLOFEN 10 MG TABLET PO ONE ×2 (23:42→23:43)
[2016-07-27] MEDS: PANTOPRAZOLE SODIUM 40 MG TABLET PO SCH (06:16)
[2016-07-27 06:45] LABS: BASOPHILS % 0.2 (0.0-1.5); EOSINOPHILS % 1.6 % (0.0-6.8); MEAN CORPUSCULAR HEMOGLOBIN 32.5 pg (28.0-34.0); MEAN CORPUSCULAR VOLUME 99.1 fl (80.0-100.0); MONOCYTES % 4.4 % (0.0-11.0); NEUTROPHILS # 7.1 # k/uL (1.4-7.7)
[2016-07-27 07:02] LABS: eGFR (African) > 60; eGFR (Non-African) > 60
[2016-07-27] MEDS ORDERED: POTASSIUM CHLORIDE 20 MEQ TABLET.ER PO ONE (07:51)
[2016-07-27] MEDS: ACETAMINOPHEN 325 MG TABLET PO SCH ×3 (08:16→17:24)
[2016-07-27] MEDS: CLOPIDOGREL BISULFATE 75 MG TABLET PO SCH (08:16)
[2016-07-27] MEDS: DOCUSATE SODIUM 100 MG CAPSULE PO SCH ×2 (08:16→21:16)
[2016-07-27] MEDS: SOTALOL HCL 80 MG TABLET PO SCH ×2 (08:16→21:16)
[2016-07-27] MEDS: SERTRALINE HCL 50 MG TABLET PO SCH (08:17)
[2016-07-27] MEDS: POTASSIUM CHLORIDE 20 MEQ TABLET.ER PO SCH (08:17)
[2016-07-27] MEDS: CHOLECALCIFEROL 1,000 UNIT TABLET PO SCH (08:17)
[2016-07-27] MEDS: DILTIAZEM HCL 120 MG CAP.ER.24H PO SCH (08:17)
[2016-07-27] MEDS: ONDANSETRON HCL 4 MG TAB.RAPDIS PO PRN (08:19)
[2016-07-27] MEDS: BACLOFEN 10 MG TABLET PO SCH ×3 (08:39→17:25)
--- NOTE | 2016-07-27 09:52 | Inpatient Progress Note ---
Subjective - Required Recertification Statement I anticipate X number of days because-include discharge plan: 10 - Review of Systems Subjective: Patient finally had 3 BM's 2 days ago. "Check good." Miralax and prune juice helped the most. Had leg cramps all night. Objective - Exam Vitals and I&O: Vital Signs Temp 98.4 F 07/26/16 20:17 Pulse 69 07/26/16 08:04 Resp 16 07/26/16 20:17 BP 119/54 07/26/16 20:17 Pulse Ox 95 07/26/16 20:17 Intake & Output 07/26/16 07/26/16 07/27/16 11:59 23:59 11:59 Intake Total 100 330 Balance 100 330 Weight 68.039 kg Intake: Oral 100 330 Other: Voiding Method Bedside Commode Bedside Commode # Voids 2 3 3 # Bowel Movements 0 General: Alert, Oriented to Person, Oriented to Place, Oriented to Time, Cooperative Lungs: Clear to auscultation, Normal air movement, Speaks full Sentences Cardiovascular: Irregularly Irregular - Results Results: Laboratory Results WBC 8.80 K/ul (4.00-12.00) 07/27/16 06:35 RBC 3.35 M/ul (3.90-5.20) L 07/27/16 06:35 Hgb 10.9 g/dL (12.0-16.0) L 07/27/16 06:35 Hct 33.2 % (34.5-46.5) L 07/27/16 06:35 MCV 99.1 fl (80.0-100.0) 07/27/16 06:35 MCH 32.5 pg (28.0-34.0) 07/27/16 06:35 MCHC 32.8 g/dL (30.0-36.0) 07/27/16 06:35 RDW 14.6 % (11.3-14.3) H 07/27/16 06:35 Plt Count 370 K/mm3 (130-400) 07/27/16 06:35 Neut % (Auto) 80.2 % (39.0-79.0) H 07/27/16 06:35 Lymph % (Auto) 12.7 % (16.0-50.0) L 07/27/16 06:35 Travis % (Auto) 4.4 % (0.0-11.0) 07/27/16 06:35 Eos % (Auto) 1.6 % (0.0-6.8) 07/27/16 06:35 Baso % (Auto) 0.2 (0.0-1.5) 07/27/16 06:35 Neut # 7.1 # k/uL (1.4-7.7) 07/27/16 06:35 Lymph # 1.1 # k/uL (0.6-4.0) 07/27/16 06:35 Travis # 0.4 # k/uL (0.0-0.9) 07/27/16 06:35 Eos # 0.1 # k/uL (0.0-0.6) 07/27/16 06:35 Baso # 0.0 # k/uL (0.0-0.5) 07/27/16 06:35 Reactive Lymphs % 1.0 % (0.0-5.0) 07/27/16 06:35 Reactive Lymphs # 0.1 # k/uL (0.0-0.8) 07/27/16 06:35 Sodium 140 mmol/L (136-145) 07/27/16 06:35 Potassium 2.8 mmol/L (3.5-5.0) L 07/27/16 06:35 Chloride 105 mmol/L (98-110) 07/27/16 06:35 Carbon Dioxide 32 mmol/L (20-32) 07/27/16 06:35 BUN 9 mg/dL (10-26) L 07/27/16 06:35 Creatinine 0.7 mg/dL (0.4-1.5) 07/27/16 06:35 Estimated Creat Clear 71 07/27/16 06:35 Est GFR ( Amer) > 60 (60-) 07/27/16 06:35 Est GFR (Non-Af Amer) > 60 (60-) 07/27/16 06:35 Glucose 106 mg/dL (70-99) H 07/27/16 06:35 Calcium 11.0 mg/dL (8.5-10.5) H 07/27/16 06:35 Phosphorus 2.9 mg/dL (2.5-4.5) 07/20/16 06:30 Assessment/Plan - Assessment/Plan (1) Unsteady gait Status: Acute Current Visit: Yes (2) Afib Status: Acute Current Visit: Yes Qualifiers: Atrial fibrillation type: chronic Qualified Code(s): I48.2 - Chronic atrial fibrillation (3) Anemia Status: Acute Current Visit: Yes Qualifiers: Anemia type: unspecified type Qualified Code(s): D64.9 - Anemia, unspecified Plan: Improved. (4) Hypophosphatemia Status: Acute Current Visit: Yes (5) Hypokalemia Status: Acute Current Visit: Yes Plan: Suspect contributing to cramps. Replace orally. (6) Right femoral fracture Status: Acute Current Visit: No Qualifiers: Encounter type: initial encounter Femur location: intertrochanteric Fracture type: closed Fracture alignment: displaced Qualified Code(s): S72.141A - Displaced intertrochanteric fracture of right femur, initial encounter for closed fracture Plan: Cont. PT/OT. (7) Muscle cramps Status: Acute Current Visit: Yes Plan: Will restart baclofen. (8) Constipation Status: Acute Current Visit: Yes Plan: Will do daily miralax in prune juice.
[2016-07-27] MEDS: DIAZEPAM 5 MG TABLET PO PRN ×2 (10:12→21:19)
[2016-07-27] MEDS: oxyCODONE HCL 5 MG TABLET PO PRN ×2 (10:12→21:20)
[2016-07-27] MEDS: POLYETHYLENE GLYCOL 3350 17 GM POWD.PACK PO SCH ×2 (11:17→11:30)
[2016-07-27] MEDS: ENOXAPARIN SODIUM 30 MG/0.3 ML DISP.SYRIN SQ SCH (14:56)
[2016-07-28] MEDS: PANTOPRAZOLE SODIUM 40 MG TABLET PO SCH (05:51)
[2016-07-28] MEDS: oxyCODONE HCL 5 MG TABLET PO PRN ×2 (08:31→14:40)
[2016-07-28] MEDS: SOTALOL HCL 80 MG TABLET PO SCH ×2 (09:21→20:02)
[2016-07-28] MEDS: DOCUSATE SODIUM 100 MG CAPSULE PO SCH ×2 (09:23→20:02)
[2016-07-28] MEDS: POTASSIUM CHLORIDE 20 MEQ TABLET.ER PO SCH (09:24)
[2016-07-28] MEDS: BACLOFEN 10 MG TABLET PO SCH ×2 (09:24→13:23)
[2016-07-28] MEDS: CLOPIDOGREL BISULFATE 75 MG TABLET PO SCH (09:30)
[2016-07-28] MEDS: CHOLECALCIFEROL 1,000 UNIT TABLET PO SCH (09:32)
[2016-07-28] MEDS: ACETAMINOPHEN 325 MG TABLET PO SCH ×3 (09:32→18:10)
[2016-07-28] MEDS: SERTRALINE HCL 50 MG TABLET PO SCH (09:33)
[2016-07-28] MEDS: DILTIAZEM HCL 120 MG CAP.ER.24H PO SCH (09:36)
[2016-07-28] MEDS: POLYETHYLENE GLYCOL 3350 17 GM POWD.PACK PO SCH (11:18)
--- NOTE | 2016-07-28 13:28 | Diagnostic Imaging Report ---
[facility] [address] [facility] [address] [place] [address]. [id number] Report Submission Date: July 28, 2016 1:09:08 PM CDT Patient Study Name: PRASHANTH QUEEN Date: July 28, 2016 12:20:10 PM CDT Modality Type: CT\SR Gender: F Description: CT PELVIS W/O CONTRAST : 28 Institution: [facility] Physician: [facility] CT of the pelvis without contrast Clinical history right hip pain Technique 2.[address] slices through the right hip with sagittal and coronal reconstructions Findings: There is aortoiliac vascular calcification. Lumbar spondylosis is present. There is a right hip internal fixation. Left hip degenerative arthritis is present. There is interruption of the anterior cortex of the proximal right femur and posterior cortex of the proximal right femur. This is well seen on sagittal reconstructions. 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 There is femoral artery calcification Impression: Nondisplaced proximal right femur fracture involving the proximal femur anterior and posterior to stem of the right hip internal fixation the compression screw Multifocal vascular calcification. Osteopenia of the hips Electronically signed on July 28, 2016 1:09:08 PM CDT by: Miller SHEIKH
[2016-07-28] MEDS: ONDANSETRON HCL 4 MG TAB.RAPDIS PO PRN (13:53)
[2016-07-28] MEDS: ENOXAPARIN SODIUM 30 MG/0.3 ML DISP.SYRIN SQ SCH (15:23)
[2016-07-28] MEDS: DIAZEPAM 5 MG TABLET PO PRN (18:10)
[2016-07-28] MEDS: diphenhydrAMINE HCL 25 MG TABLET PO PRN (20:02)
[2016-07-28] MEDS: CYCLOBENZAPRINE HCL 5 MG TABLET PO SCH (20:02)
--- NOTE | 2016-07-28 21:09 | Diagnostic Imaging Report ---
[facility] [address] [facility] [address] [address] Report Submission Date: July 28, 2016 3:30:08 PM CDT Patient Study Name: PRASHANTH QUEEN Date: July 28, 2016 3:05:42 PM CDT Modality Type: CR Gender: F Description: PELVIS : 28 Institution: [facility] Physician: [facility] WING/MED SURG 2 views of the right hip History: RT HIP, INCREASED HIP PAIN PHYSICIAN WOULD LIKE TODAY'S XRAYS COMPARED TO THE IMAGES TAKEN ON 07/12/16 FOR CHANGES Findings: Comparison: Abdominal radiograph dated July 25, 2016, CT pelvis dated July 28, 2016. Study dated 07/12/16 is not available for comparison at the time of dictation Bones are demineralized. Again noted is a minimally displaced fracture of the right femoral intertrochanteric region and proximal femur post internal fixation with compression screw in place. Degenerative changes are noted at the right hip with narrowing of the hip joint space and presence of osteophytes. Several artifacts are present on the study Vascular calcification is present Impression: Several artifacts limit the study Internally fixated right intertrochanteric and proximal femur minimally displaced acute fractures Degenerative changes right hip. Electronically signed on July 28, 2016 3:30:08 PM CDT by: Franchesca SHEIKH
--- NOTE | 2016-07-28 21:10 | Diagnostic Imaging Report ---
[facility] SURG [facility] [address] [facility] [address] [place] [address]. [id number] Report Submission Date: July 28, 2016 5:40:56 PM CDT Patient Study Name: PRASHANTH QUEEN Date: July 28, 2016 12:16:30 PM CDT Modality Type: CT\SR Gender: F Description: CT L-SPINE W/O CONTRAS : 28 Institution: [facility] Physician: [facility]G CT lumbar spine Date of examination: July 28, 2016. CLINICAL HISTORY: BACK PAIN, FOOT DROP (Hx) / LOW BACK PAIN, FOOT DROP (DICOM Hx) TECHNIQUE: 3 mm contiguous axial images of the lumbar spine with sagittal and coronal reconstructions. FINDINGS: No comparison studies are provided. The lumbar spine alignment is normal. There is an L2 compression fracture with approximately 50% loss of vertebral body height involving predominately the superior endplate. Correlation with MRI of the lumbar spine is recommended to determine if this is an acute or chronic compression fracture. There is slight loss of vertebral body height involving T12 and T10 that is indeterminate for minimal superior plate fracture. Again correlation with MRI of the spine is recommended. Multilevel degenerative lumbar spondylosis is noted. Slight posterior retropulsion of the superior endplate of L2 present creates minimal narrowing of the spinal canal diameter. A disc bulge/spur complex at L2/ L3 combined with bilateral degenerative facet joint changes creates moderate spinal canal stenosis and bilateral neural foraminal narrowing. There is L3/4 degenerative disc space narrowing and slight disc bulging that combined with bilateral degenerative facet joint changes creates severe right neural foraminal narrowing, mild left neural foraminal narrowing and mild to moderate spinal canal stenosis. L4/L5 minimal disc bulging is present that combined with bilateral degenerative facet joint changes creates mild bilateral neural foraminal narrowing without spinal canal stenosis. There are bilateral degenerative facet joint changes at L4/L5. L5/S1 degenerative facet joint changes and disc space narrowing are present with mild bilateral neural foraminal narrowing, however, no significant spinal canal stenosis. IMPRESSION: L2 compression fracture with approximately 50% loss of vertebral body height. Recommend correlation with MRI. Questionable deformity of the superior plates of T12 and T10. Recommend correlation with MRI of the spine to evaluate for fractures in these locations. Multilevel degenerative lumbar spondylosis as described above. L2/L3 moderate spinal canal stenosis and bilateral neural foraminal narrowing. L3/4 mild spinal canal stenosis with severe right and mild left neural foraminal narrowing. L4/L5 mild bilateral neural foraminal narrowing. L5/S1 mild bilateral neural foraminal narrowing. Electronically signed on July 28, 2016 5:40:56 PM CDT by: Christopher SHEIKH
[2016-07-29] MEDS: oxyCODONE HCL 5 MG TABLET PO PRN (04:04)
[2016-07-29] MEDS: PANTOPRAZOLE SODIUM 40 MG TABLET PO SCH (06:35)
[2016-07-29] MEDS: ONDANSETRON HCL 4 MG TAB.RAPDIS PO PRN ×2 (07:33→18:09)
[2016-07-29] MEDS: SOTALOL HCL 80 MG TABLET PO SCH ×2 (08:37→19:42)
[2016-07-29] MEDS: DOCUSATE SODIUM 100 MG CAPSULE PO SCH ×2 (08:38→19:42)
[2016-07-29] MEDS: DILTIAZEM HCL 120 MG CAP.ER.24H PO SCH (08:38)
[2016-07-29] MEDS: POTASSIUM CHLORIDE 20 MEQ TABLET.ER PO SCH (08:39)
[2016-07-29] MEDS: CLOPIDOGREL BISULFATE 75 MG TABLET PO SCH (08:40)
[2016-07-29] MEDS: ACETAMINOPHEN 325 MG TABLET PO SCH ×3 (08:41→18:09)
[2016-07-29] MEDS: CHOLECALCIFEROL 1,000 UNIT TABLET PO SCH (08:42)
[2016-07-29] MEDS: SERTRALINE HCL 50 MG TABLET PO SCH (08:42)
[2016-07-29 10:36] LABS: eGFR (African) > 60; eGFR (Non-African) > 60
[2016-07-29] MEDS: POLYETHYLENE GLYCOL 3350 17 GM POWD.PACK PO SCH ×2 (11:23→19:51)
[2016-07-29] MEDS: DIAZEPAM 5 MG TABLET PO PRN (14:12)
[2016-07-29] MEDS: ENOXAPARIN SODIUM 30 MG/0.3 ML DISP.SYRIN SQ SCH (14:49)
[2016-07-29] MEDS ORDERED: POTASSIUM CHLORIDE 20 MEQ TABLET.ER PO ONE (16:53)
[2016-07-29] MEDS: CYCLOBENZAPRINE HCL 5 MG TABLET PO SCH (19:49)
[2016-07-29] MEDS: ACETAMINOPHEN 500 MG TABLET PO PRN (21:49)
[2016-07-29] MEDS: diphenhydrAMINE HCL 25 MG TABLET PO PRN (21:49)
[2016-07-30] MEDS: DIAZEPAM 5 MG TABLET PO PRN (02:51)
[2016-07-30] MEDS: oxyCODONE HCL 5 MG TABLET PO PRN (02:51)
[2016-07-30] MEDS: ONDANSETRON HCL 4 MG TAB.RAPDIS PO PRN (02:51)
[2016-07-30] MEDS: PANTOPRAZOLE SODIUM 40 MG TABLET PO SCH (06:12)
[2016-07-30 08:29] VITALS: BP 169/82
--- NOTE | 2016-08-02 20:18 | Discharge Summary ---
Discharge Summary - Discharge Sumary History of Present Illness: Patient admitted to SNF for PT/OT. She suffered R hip fx while changing sheets - got her foot caught in the sheets and fell. Dr. Brooks did an intramedullary fixation of her R intertrochanteric femur fracture. Post operatively she had RVR with her Afib. Diltiazem was added to her medication regimen. She did have some post op anemia - Hgb stable around 8.6. She has had poor appetite and noted to have low potassium and phosphorus. Pain seems better but no BM since she went to the hospital. Condition at Discharge: Stable Home Medications: Ambulatory Orders Medication Instructions Recorded Lansoprazole 15 mg PO DAILY 06/02/16 Atorvastatin Calcium 20 mg PO HS 07/12/16 Acetaminophen [Extra Strength 500 mg PO PRN 07/16/16 Non-Aspirin] Baclofen [Liorasal] 5 mg PO Q12 PRN 07/16/16 Bisacodyl 10 mg RC DAILY PRN 07/16/16 Cholecalciferol [Vitamin D-3] 2,000 unit PO DAILY 07/16/16 Diazepam [Valium] 2 mg PO PRN PRN 07/16/16 Diltiazem HCl [Cardizem CD] 120 mg PO DAILY 07/16/16 Docusate Sodium [Colace] 100 mg PO BID 07/16/16 Enoxaparin Sodium [Lovenox] 40 mg SQ DAILY 07/16/16 HYDROcodone /APAP 5/325 [Franklin 1 - 2 tab PO Q4 PRN 07/16/16 5/325] Magnesium Hydroxide [Milk of 30 ml PO BID PRN 07/16/16 Magnesia] Ondansetron HCl Rapdis [Zofran ODT] 4 mg PO Q8 PRN 07/16/16 Tramadol HCl [Ultram] 50 mg PO Q6 PRN 07/16/16 diphenhydrAMINE HCL [Benadryl] 25 mg PO PRN PRN 07/16/16 Clopidogrel Bisulfate [Plavix] 37.5 mg PO DAILY 07/17/16 Consultations this Visit: None Procedures this Visit: None Allergies/Adverse Reactions: Allergies Allergy/AdvReac Type Severity Reaction Status Date / Time sulfamethoxazole Allergy Intermediate rash Verified 07/12/16 09:09 [From Bactrim] trimethoprim [From Bactrim] Allergy Intermediate rash Verified 07/12/16 09:09 Discharge Summary: Patient admitted to SNF after suffering a R femur fx. She suffered from nausea and vomiting so most new meds were discontinued. She did improve. However, had problems with constipation. She was given dulcolax, miralax, magnesium citrate and 2 enemas. Finally had luck with miralax and prune juice. Therapy staff noted her to have R foot drop and increased R hip pain. Xrays sent to Dr. Brooks, who thought the repair looked good. Ct of L spine was done - with noted L2 compression fracture of 50%. Patient was transferred to [facility] for MRI and neuro evaluation. Hospital Course: Discharge Dx: R femur fx. Weakness/Anorexia. Constipation. R foot drop. Afib. Hypokalemia. Disposition: [facility]
== END 2016-07-30 08:15 | disposition short-term general hospital (02) | DRG 93 ==
LOC: SOUTH 12:38
PROVIDERS: ADMIT Family Medicine; ATTEND Family Medicine
DX: R26.89 Other abnormalities of gait and mobility (principal); S72.141A Displaced intertrochanteric fracture of right femur, initial encounter for closed fracture; I48.2 Chronic atrial fibrillation; D64.9 Anemia, unspecified; E83.39 Other disorders of phosphorus metabolism; E87.6 Hypokalemia; Y92.9 Unspecified place or not applicable; Y93.9 Activity, unspecified
CPT/HCPCS: 36415; 70450; 72131; 72192; 73502; 74000; 80048; 84100; 85025; 87086; J1650; A9270; A9270-GY; Q0163

== ENCOUNTER 2016-12-13 09:47 | Outpatient (CLI) | payer MEDICARE, BC ==
[2016-12-13 10:23] LABS: eGFR (African) > 60; eGFR (Non-African) > 60
== END 2016-12-13 09:50 ==
LOC: LAB 09:47
PROVIDERS: ATTEND Family Medicine
DX: E21.3 Hyperparathyroidism, unspecified (principal)
CPT/HCPCS: 36415; 80053

== ENCOUNTER 2017-01-03 08:43 | Outpatient (CLI) | payer MEDICARE, BC ==
[2017-01-03 09:31] LABS: eGFR (African) > 60; eGFR (Non-African) > 60
== END 2017-01-03 08:44 ==
LOC: LAB 08:43
PROVIDERS: ATTEND Family Medicine
DX: M81.0 Age-related osteoporosis without current pathological fracture (principal)
CPT/HCPCS: 36415; 80048

== ENCOUNTER 2017-01-17 08:56 | Outpatient (CLI) | payer MEDICARE, BC ==
[2017-01-17 09:39] LABS: eGFR (African) > 60; eGFR (Non-African) > 60
== END 2017-01-17 08:57 ==
LOC: LAB 08:56
PROVIDERS: ATTEND Physician Assistant
DX: M81.0 Age-related osteoporosis without current pathological fracture (principal)
CPT/HCPCS: 36415; 80048

== ENCOUNTER 2017-01-19 10:50 | Outpatient (CLI) | payer MEDICARE, BC ==
[2017-01-19] MEDS ORDERED: DENOSUMAB 60 MG/ML ML SQ ONE (11:30)
[2017-01-19] MEDS ORDERED: DENOSUMAB 60 MG/ML ML SQ SCH (12:00)
== END 2017-01-19 10:52 ==
LOC: INF 10:50
PROVIDERS: ATTEND Family Medicine
DX: M81.0 Age-related osteoporosis without current pathological fracture (principal)
CPT/HCPCS: 96372; J0897

== ENCOUNTER 2017-07-19 07:39 | Outpatient (CLI) | payer MEDICARE, BC ==
[2017-07-19 08:37] LABS: eGFR (African) > 60; eGFR (Non-African) > 60
== END 2017-07-19 09:42 ==
LOC: LAB 07:39
PROVIDERS: ATTEND Family Medicine
DX: M81.0 Age-related osteoporosis without current pathological fracture (principal)
CPT/HCPCS: 36415; 80048

== ENCOUNTER 2017-07-20 12:49 | Outpatient (CLI) | payer MEDICARE, BC ==
[2017-07-20] MEDS ORDERED: DENOSUMAB 60 MG/ML ML SQ ONE (13:00)
== END 2017-07-20 13:21 ==
LOC: INF 12:49
PROVIDERS: ATTEND Family Medicine
DX: M81.0 Age-related osteoporosis without current pathological fracture (principal)
CPT/HCPCS: 96372; J0897

== ENCOUNTER 2017-10-14 15:58 | Outpatient (CLI) | payer MEDICARE, BC | END 2017-10-14 16:00 | LOC: LABRHC 15:58 | PROVIDERS: ATTEND Physician Assistant | DX: R30.0 Dysuria (principal) | CPT/HCPCS: 87086 ==

== ENCOUNTER 2018-01-24 10:43 | Outpatient (CLI) | payer MEDICARE, BC ==
[2018-01-24 11:31] LABS: eGFR (Non-African) > 60
== END 2018-01-24 10:44 ==
LOC: LAB 10:43
PROVIDERS: ATTEND Family Medicine
DX: M81.0 Age-related osteoporosis without current pathological fracture (principal)
CPT/HCPCS: 36415; 80048

== ENCOUNTER 2018-01-26 10:40 | Outpatient (CLI) | payer MEDICARE, BC ==
[~2018-01-26 10:40] MED LIST: DENOSUMAB 60 MG/ML SYRINGE SQ ONE
== END 2018-01-26 10:42 ==
LOC: INF 10:40
PROVIDERS: ATTEND Family Medicine
DX: M81.0 Age-related osteoporosis without current pathological fracture (principal)
CPT/HCPCS: 96372; J0897

== ENCOUNTER 2018-06-12 09:02 | Emergency (ER) | payer MEDICARE, BC ==
--- NOTE | 2018-06-12 09:15 | ED Physician Documentation ---
General Adult - HPI Stated Complaint: took extra cartia pill this morning by accident Chief Complaint: General Adult Additional Information: Patient presents to ED as directed by Dr. Rodriguez's office after accidentally taking an extra Cartia 120mg pill this morning. Patient has a history of atrial fibrillation and is on sotalol and cartia for rate control. This morning around 0430 she took her normal doses of Sotalol 40mg and Cartia 120mg. She took this medication early because her atrial fib was "acting up" with HR 100-188. She was instructed by Dr. Rodriguez to take it early if she became symptomatic. Onset: hours (2) Timing: still present Severity: mild Further Comments: no - ROS CONST: no problems EYES/ENT: denies: problems with vision CVS/RESP: denies: chest pain, shortness of breath GI/: denies: vomiting, nausea MS/SKIN/LYMPH: none. denies: ankle swelling NEURO/PSYCH: denies: headache, fainting, dizziness - PAST HX Past History: A-Fib Other History: none Surgeries/Procedures: none Allergies/Adverse Reactions: Allergies Allergy/AdvReac Type Severity Reaction Status Date / Time sulfamethoxazole Allergy Intermediate rash Verified 06/12/18 09:29 [From Bactrim] trimethoprim [From Bactrim] Allergy Intermediate rash Verified 06/12/18 09:29 Home Medications: Ambulatory Orders Medication Instructions Recorded Cholecalciferol [Vitamin D-3] 2,000 unit PO DAILY 07/16/16 Acetaminophen [Tylenol Extra 500 mg PO PRN PRN 07/20/17 Strength] Cetirizine HCl [Zyrtec] 10 mg PO QDAY 07/20/17 - SOCIAL HX Smoking History: non-smoker Alcohol Use: none Drug Use: none - FAMILY HX Family History: No - VITAL SIGNS Vital Signs: Vital Signs Temp Pulse Resp BP Pulse Ox 169/82 07/30/16 07:50 - REVIEWED ASSESSMENTS Nursing Assessment Reviewed: Yes Vitals Reviewed: Yes Progress - Progress Progress: 1011 Patient resting comfortably and feeling ok. Blood pressure is 117/53 General Adult Physical Exam - PHYSICAL EXAM GENERAL APPEARANCE: no distress EENT: ORA NECK: supple RESPIRATORY: no resp distress, chest non-tender, breath sounds normal CVS: no murmur, irregularly irregular rhy ABDOMEN: soft, normal bowel sounds BACK: normal inspection, no CVA tenderness SKIN: warm/dry, normal color EXTREMITIES: non-tender, edema (trace to +1 lower extremity edema at ankles bilaterally) NEURO: oriented X3, motor nml, mood/affect nml Discharge Clincal Impression: Medication administered in error Qualifiers: Encounter type: initial encounter Injury intent: accidental or unintentional Qualified Code(s): T50.901A - Poisoning by unspecified drugs, medicaments and biological substances, accidental (unintentional), initial encounter Referrals: Fany Rodriguez MD [Primary Care Provider] - 2 Days Additional Instructions: 1. Drink plenty of fluids for next 24 hours. Avoid Caffeine or alcohol 2. Follow up with PCP within 1 week 3. Return to ER for new or worsening symptoms. Condition: Stable Disposition: 01 HOME, SELF-CARE Decision to Admit: NO Date of Decison to Admit: 06/12/18 Decision Time: 10:17
[2018-06-12 10:33] VITALS: BP 117/53
== END 2018-06-12 10:24 | disposition home or self-care (01) ==
LOC: ED 09:02
DX: T46.1X1A Poisoning by calcium-channel blockers, accidental (unintentional), initial encounter (principal); Y92.009 Unspecified place in unspecified non-institutional (private) residence as the place of occurrence of the external cause
CPT/HCPCS: 99281

== ENCOUNTER 2018-07-28 09:52 | Outpatient (CLI) | payer MEDICARE, BC ==
[~2018-07-28 09:52] MED LIST changes: +DENOSUMAB (NF) 60 MG/ML SYRINGE SQ ONE; -DENOSUMAB 60 MG/ML SYRINGE SQ ONE
== END 2018-07-28 10:39 ==
LOC: INF 09:52
PROVIDERS: ATTEND Family Medicine
DX: M81.0 Age-related osteoporosis without current pathological fracture (principal)
CPT/HCPCS: J0897

== ENCOUNTER 2018-08-08 17:00 | Outpatient (CLI) | payer MEDICARE, BC | END 2018-08-08 17:05 | disposition home or self-care (01) | LOC: LABRHC 17:00 | PROVIDERS: ATTEND Family Medicine | DX: R30.0 Dysuria (principal) | CPT/HCPCS: 87086 ==

== ENCOUNTER 2018-11-23 09:21 | Outpatient (CLI) | payer MEDICARE, BC ==
[2018-11-23 09:54] LABS: BASOPHILS % 0.3 % (0.0-1.5); NEUTROPHILS # 4.3 # k/uL (1.4-7.7)
[2018-11-23 10:20] LABS: HDL 61 mg/dL (>40); eGFR (Non-African) > 60
== END 2018-11-23 09:23 ==
LOC: LAB 09:21
PROVIDERS: ATTEND Family Medicine
DX: E78.2 Mixed hyperlipidemia (principal); L98.9 Disorder of the skin and subcutaneous tissue, unspecified
CPT/HCPCS: 36415; 80053; 80061; 85025

== ENCOUNTER 2019-01-31 08:05 | Outpatient (CLI) | payer MEDICARE, BC ==
[2019-01-31 08:58] LABS: eGFR (Non-African) > 60
== END 2019-01-31 08:10 ==
LOC: LAB 08:05
PROVIDERS: ATTEND Family Medicine
DX: M81.0 Age-related osteoporosis without current pathological fracture (principal)
CPT/HCPCS: 36415; 80048

== ENCOUNTER 2019-02-02 10:03 | Outpatient (CLI) | payer MEDICARE, BC ==
[2019-02-02] MEDS ORDERED: DENOSUMAB (NF) 60 MG/ML SYRINGE SQ ONE (12:00)
== END 2019-02-02 10:20 | disposition home or self-care (01) ==
LOC: INF 10:03
PROVIDERS: ATTEND Family Medicine
DX: M81.0 Age-related osteoporosis without current pathological fracture (principal)
CPT/HCPCS: J0897